=== PATIENT | female | born 2000 ===

== ENCOUNTER 2022-07-13 15:49 | Outpatient (CLI) | payer OTHER | END 2022-07-13 17:06 | disposition home or self-care (01) | LOC: PRENATAL 15:49 | PROVIDERS: ATTEND Obstetrics & Gynecology Maternal & Fetal Medicine | DX: O35.3XX0 Maternal care for (suspected) damage to fetus from viral disease in mother, not applicable or unspecified (principal); O35.0XX0 Maternal care for (suspected) central nervous system malformation in fetus, not applicable or unspecified; Z3A.20 20 weeks gestation of pregnancy ==

== ENCOUNTER 2022-07-15 17:05 | Outpatient (CLI) | payer OTHER | END 2022-07-16 09:50 | disposition home or self-care (01) | LOC: OBS/DEL 17:05 | PROVIDERS: ATTEND Obstetrics & Gynecology | DX: O26.892 Other specified pregnancy related conditions, second trimester (principal); Z3A.21 21 weeks gestation of pregnancy ==

== ENCOUNTER 2022-11-11 13:26 | Outpatient (CLI) | payer OTHER | END 2022-11-11 17:15 | disposition home or self-care (01) | LOC: OBS/DEL 13:26 | PROVIDERS: ATTEND Obstetrics & Gynecology | DX: O26.893 Other specified pregnancy related conditions, third trimester (principal); Z3A.38 38 weeks gestation of pregnancy; R10.2 Pelvic and perineal pain; Z91.012 Allergy to eggs ==

== ENCOUNTER 2022-11-21 05:09 | Inpatient (IN) | payer OTHER ==
[~2022-11-21] VITALS: Ht 162.6 cm; Wt 2.7 kg
[2022-11-21] MEDS ORDERED: PRENATAL TABLE1 EAC1 PO (08:09)
[2022-11-21] MEDS ORDERED: LEVOTHYROXINE25 MCG PO (08:10)
[2022-11-21] MEDS ORDERED: CHILDREN'S ASPI81 MG PO (08:10)
== END 2022-11-24 14:34 | disposition home or self-care (01) | DRG 788 ==
LOC: LDR 05:09 → OB/GYN 05:09
PROVIDERS: ADMIT Obstetrics & Gynecology; ATTEND Obstetrics & Gynecology
PROC: 4A1HXCZ Monitoring of Products of Conception, Cardiac Rate, External Approach (ICD-10-PCS; 2022-11-21)
PROC: 10D00Z1 Extraction of Products of Conception, Low, Open Approach (ICD-10-PCS; principal; 2022-11-21 17:30)
DX: O62.0 Primary inadequate contractions (principal); Z3A.40 40 weeks gestation of pregnancy; Z37.0 Single live birth; Z20.822 Contact with and (suspected) exposure to COVID-19